=== PATIENT | female | born 1940 | race Caucasian/White ===

== ENCOUNTER 2018-11-28 10:30 | Day surgery (SDC) | payer OTHER ==
[2018-11-28] MEDS ORDERED: NS 0.9% VIAL 10 ML ONE (10:51)
[2018-11-28] MEDS: TETRACAINE HCL 0.5% 2ML OPTH ONE ×2 (11:01→12:30)
[2018-11-28] MEDS: LIDOCAINE 2% MPF 5 ML VIAL ONE ×2 (11:01→12:30)
[2018-11-28] MEDS: BUPIVACAINE 0.25% PF 10 ML VIAL ONE ×2 (11:01→12:30)
[2018-11-28] MEDS ORDERED: NA CHLORIDE 0.9% 500 ML ONE (11:02)
[2018-11-28] MEDS: CYCLOPENTOLATE 1% OPTH 2 ML ONE ×3 (11:16→11:26)
[2018-11-28] MEDS: PHENYLEPHRINE 10% OPTH 5ML ONE ×3 (11:16→11:26)
[2018-11-28 11:22] VITALS: BP 130/55; TEMP 98.5; O2SAT 100
--- OUTSIDE RECORDS SUMMARY | 2018-11-28 11:36 | XMS REPORT | Clinical Summary ---
:1940 Author Organization [facility] Address [address] [place] [address] Care Team Providers Name Role Phone George Mohan MD Primary Care Provider Allergies Active Allergy Reactions Severity Noted Date Comments Abciximab 07/24/2016 Celecoxib 12/03/2015 Heart Condition Metoclopramide 12/03/2015 Unknown reaction Nsaids (Non-Steroidal 07/24/2016 Anti-Inflammatory Drug) Penicillins Anaphylaxis, Rash, High 12/03/2015 Swelling Simvastatin 07/24/2016 Medications Medication Sig Dispensed Refills Start End Status Date Date azelastine 0.15 % USE 2 SQUIRTS 3 Active (205.5 mcg) EACH NOSTRIL 6 spray,non-aerosol PRN COMBIGAN 0.2-0.5 % PUT 1 DROP 1 Active ophthalmic solution INTO BOTH EYES 6 EVERY 12 HOURS ipratropium (ATROVENT) 2 sprays into 0 Active 0.06 % nasal spray each nostril 6 as needed. valACYclovir (VALTREX) Take 500 mg by 0 Active 500 MG tablet mouth daily. 6 MECOBAL/LEVOMEFOLAT Take by mouth 0 Active CA/B6 PHOS (METANX daily. ORAL) aspirin (ECOTRIN) 81 MG Take 81 mg by 0 Active enteric coated tablet mouth daily. MELATONIN ORAL Take 20 mg by 0 Active mouth. ZIOPTAN, PF, 0.0015 % INSTILL 1 DROP 1 Active dropperette IN BOTH EYES 7 AT BEDTIME cycloSPORINE (RESTASIS) Administer 1 0 Active 0.05 % ophthalmic drop to both emulsion eyes 2 (two) times a day. ranitidine (ZANTAC) 150 Take 150 mg by 0 Active MG tablet mouth 2 (two) 7 times a day. Saccharomyces boulardii Take 250 mg by 0 Active (FLORASTOR) 250 mg mouth 2 (two) capsule times a day. biotin 10,000 mcg Take 10,000 0 Active capsule mcg by mouth daily. ZETIA 10 mg Take 1 tablet 90 tablet 3 Active tabletIndications: (10 mg total) 8 Coronary artery disease by mouth once involving [place] heart daily. with angina pectoris, unspecified vessel or lesion type (HCC) EFFIENT 10 mg tablet TAKE 1 TABLET 90 tablet 3 Active BY MOUTH EVERY 8 DAY spironolactone Take 0.5 45 tablet 3 Active (ALDACTONE) 25 MG tablets (12.5 8 tabletIndications: mg total) by Coronary artery disease mouth daily. involving [place] coronary artery of [place] heart without angina pectoris linaclotide (LINZESS) Take 290 mcg 0 Active 290 mcg capsule by mouth. furosemide (LASIX) 20 Take 20 mg by 1 Active mg tablet mouth every 8 morning. pravastatin (PRAVACHOL) Take 1 tablet 90 tablet 2 Active 40 MG tablet (40 mg total) 8 by mouth daily. LINZESS 145 mcg capsule Take 145 mcg 0 Discontinued by mouth daily 6 018 before breakfast. ZETIA 10 mg Take 1 tablet 90 tablet 3 Discontinued tabletIndications: (10 mg total) 7 018 Coronary artery disease by mouth once involving [place] heart daily. with angina pectoris, unspecified vessel or lesion type (HCC) pravastatin (PRAVACHOL) Take 1 tablet 90 tablet 3 Discontinued 40 MG tablet (40 mg total) 7 018 by mouth daily. EFFIENT 10 mg tablet Take 1 tablet 90 tablet 3 Discontinued (10 mg total) 7 018 by mouth once daily. pantoprazole (PROTONIX) Take 40 mg by 0 Discontinued 40 MG EC tablet mouth daily. 018 promethazine-DM 0 Discontinued (PROMETHAZINE-DM) 7 018 6.25-15 mg/5 mL syrup spironolactone Take 25 mg by 0 Discontinued (ALDACTONE) 25 MG mouth daily. 018 tablet Lactobac Take by mouth 0 Discontinued 41-B.bifid,lactis-FOS daily. 018 (ULTIMATE PROBIOTIC-10) 111 mg (25 billion cell) capsule hydroCHLOROthiazide Take 1 capsule 90 capsule 3 Discontinued (MICROZIDE) 12.5 mg (12.5 mg 8 018 capsuleIndications: total) by Hypertension, mouth daily. unspecified type, SOB (shortness of breath) ZETIA 10 mg Take 1 tablet 90 tablet 3 Discontinued tabletIndications: (10 mg total) 8 018 Coronary artery disease by mouth once involving [place] heart daily. with angina pectoris, unspecified vessel or lesion type (HCC) pravastatin (PRAVACHOL) TAKE 1 TABLET 90 tablet 3 Discontinued 40 MG tablet BY MOUTH EVERY 8 018 DAY ferrous sulfate 325 (65 Take 325 mg by 0 Discontinued FE) MG tablet mouth daily 019 with breakfast. 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 Hypertension 04/19/2017 Chest pain 04/19/2017 Stenosis of carotid artery 07/24/2016 Coronary artery disease involving [place] coronary artery of [place] heart 07/24 without angina pectoris Dyslipidemia 07/24/2016 SOB (shortness of breath) 07/24/2016 Gastroesophageal reflux disease 07/24/2016 Presence of stent in coronary artery 07/24/2016 Encounters Date Type Specialty Care Team Description Telephone Gastroenterology Elayne Leon RN Orders Only Cardiology Jessica Donnelly MD Hospital Gastroenterology Keiry Alvarado 9 Encounter MD Robb Telephone Gastroenterology Elayne Webster MA Anesthesia Gastroenterology [facility], 9 Event Nilesh Weems MD Surgery Gastroenterology Keiry Alvarado ESOPHAGOGASTRODUODENOSCOPY Elayne Zamudio MD (EGD) [facility] Gastroenterology Keiry Alvarado 9 Encounter MD Robb Orders Only Gastroenterology Faustina Anand Gastroesophageal reflux 9 DEEPTI Bosch disease, esophagitis presence not specified (Primary Dx) Telephone Gastroenterology Elayne Webster MA Telephone Gastroenterology Elayne Leon RN Orders Only Gastroenterology Kika Faustina 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) (Primary Dx) Telephone Gastroenterology Faustina Anand 8 DEEPTI Bosch Orders Only Gastroenterology Faustina Anand 8 DEEPTI Bosch Telephone Gastroenterology Kika Faustina 8 DEEPTI Bosch Telephone Cardiology Jamel Berkowitz Med Refill 8 DEEPTI Telephone Gastroenterology Benjie Leon RN [facility] Radiology ErgKeiry haji Gastroesophageal reflux 8 Benson Zamudio MD disease without esophagitis Office Visit Gastroenterology Keiry Alvarado Gastroesophageal reflux disease without esophagitis (Primary Dx); Benjie Zamudio MD Dyskinesia of esophagus Orders Only Gastroenterology Asadvinay Faustina Gastroesophageal reflux 8 DEEPTI Bosch disease without esophagitis (Primary Dx) Office Visit Cardiology Jessica Donnelly Coronary artery disease involving [place] coronary artery of [place] heart without angina pectoris ( Primary Dx); Benjie Petty MD SOB (shortness of breath); Weakness Orders Only Cardiology Jessica Donnelly MD Office Visit Cardiology Jessica Donnelly Preop cardiovascular exam ( Primary Dx); Benjie Petty MD Coronary artery disease involving [place] heart with angina pectoris, unspecified vessel or lesion type Refill Cardiology Jessica Donnelly Med Refill Benjie Petty MD Orders Only Cardiology Hamlet Ghosh MA Coronary artery disease 8 involving [place] heart with angina pectoris, unspecified vessel or lesion type Refill Cardiology Jessica Donnelly Med Refill Benjie Petty MD Office Visit Cardiology Jessica Donnelly Coronary artery disease involving [place] coronary artery of [place] heart without angina pectoris ( Primary Dx); Benjie Petty MD Essential hypertension Orders Only Cardiology Hamlet Ghosh MA Coronary artery disease 8 involving [place] heart with angina pectoris, unspecified vessel or lesion type Office Visit Cardiology Jessica Donnelly Hypertension, unspecified type (Primary Dx); Benjie Petty MD SOB (shortness of breath); Presence of stent in coronary artery; Coronary artery disease involving [place] coronary artery of [place] heart without angina pectoris after 11/27/2017 Family History Medical History Relation Name Comments No Known Problems Brother No Known Problems Father Stroke Maternal Grandmother No Known Problems Mother Relation Name Status Comments Brother Alive Father Maternal Grandmother Mother Social History Tobacco Use Types Packs/Day Years Used Date Never Smoker Smokeless Tobacco: Never Used Tobacco Cessation: Counseling Given: Yes Alcohol Use Drinks/Week oz/Week Comments Yes Sex Assigned at Date Recorded Not on file Job Start Date Occupation Industry Not on file Not on file Not on file Travel History Travel Start Travel End No recent travel history available. Last Filed Vital Signs Vital Sign Reading Time Taken Blood Pressure 101/63 11/08/2018 11:13 AM VARIETY SAW OPERATOR Pulse 65 11/08/2018 11:13 AM VARIETY SAW OPERATOR Temperature 36.7 C (98 F) 11/08/2018 11:13 AM VARIETY SAW OPERATOR Respiratory Rate 15 11/08/2018 11:13 AM VARIETY SAW OPERATOR Oxygen Saturation 96% 11/08/2018 11:13 AM VARIETY SAW OPERATOR Inhaled Oxygen Concentration - - Weight 64.7 kg (142 lb 9.6 oz) 09/19/2018 1:14 PM VARIETY SAW OPERATOR Height 167.6 cm (5' 6") 09/19/2018 1:14 PM VARIETY SAW OPERATOR Body Mass Index 23.02 09/19/2018 1:14 PM VARIETY SAW OPERATOR Plan of Treatment Date Type Specialty Care Team Description 12/06/2018 Office Visit Cardiology Jessica Donnelly MD [address] [facility] [address] [place] [address] 12/07/2018 Office Visit Gastroenterology Keiry Alvarado MD [address] [facility] [address] [facility] [address] [place] [address] Health Maintenance Due Date Last Done Comments SHINGLES VACCINES (1 of 2) 01/27/1990 PNEUMOCOCCAL POLYSACCHARIDE VACCINE AGE 65 AND OVER 01/27/2005 PNEUMOCOCCAL-13 01/27/2005 INFLUENZA VACCINE 05/18/2018 Procedures Procedure Name Priority Date/Time Associated Diagnosis Comments GENERAL SURGERY Routine 11/16/2018 ESOPHAGEAL MANOMETRY WITH 11/08/2018 GERD without ESTRADA 10:00 AM VARIETY SAW OPERATOR esophagitis ESOPHAGOGASTRODUODENOSCOPY 11/08/2018 GERD without (EGD) 10:00 AM VARIETY SAW OPERATOR esophagitis CBC HEMOGRAM Routine 10/31/2018 Anemia associated Results for 9:54 AM VARIETY SAW OPERATOR with chronic this lymphocytic leukemia procedure are treated with in the erythropoietin (HCC) results section. [place] ESOPHAGRAM COMPLETE Routine 09/19/2018 Gastroesophageal Results for 4:46 PM VARIETY SAW OPERATOR reflux disease this without esophagitis procedure are in the results section. ECG 12-LEAD Routine 07/12/2018 SOB (shortness of Results for 2:40 PM CDT breath) this Weakness procedure are in the results section. GENERAL SURGERY Routine 06/02/2018 ECG 12-LEAD Routine 05/30/2018 Preop cardiovascular Results for 3:38 PM CDT exam this procedure are in the results section. ECHOCARDIOGRAM 2D COMPLETE W Routine 12/20/2017 Hypertension, Results for MMODE SPECTRAL COLOR DOPPLER 2:46 PM VARIETY SAW OPERATOR unspecified type this (01645) SOB (shortness of procedure are breath) in the results section. after 11/27/2017 Results General surgery (11/16/2018)Only the most recent of2 resultswithin the time period is included. Narrative Performed At CBC hemogram (10/31/2018 9:54 AM VARIETY SAW OPERATOR) WBC 24.6 (H) 3.8 - 10.8 Thousand/uL [facility] RBC 4.19 3.80 - 5.10 Million/uL [facility] HGB 12.9 11.7 - 15.5 g/dL [facility] HCT 39.2 35.0 - 45.0 % [facility] MCV 93.6 80.0 - 100.0 fL [facility] MCH 30.8 27.0 - 33.0 pg [facility] MCHC 32.9 32.0 - 36.0 g/dL [facility] RDW 12.4 11.0 - 15.0 % [facility] Platelet count 166 140 - 400 Thousand/uL [facility] MPV 9.3 7.5 - 12.5 fL [facility] Specimen Blood Narrative Performed At FASTING:YES [facility] FASTING: YES Resulting Agency Comment Performing Organization Information: Site ID: [id number] Name: [facility] Address: [address] [place] [address] Director: María Garcia Performing Organization Address [facility] Phone Number [employer] [address] [phone] [place] Esophagram Complete (09/19/2018 4:46 PM VARIETY SAW OPERATOR) Narrative Performed At EXAMINATION:[place] ESOPHAGRAM COMPLETE [facility] CLINICAL HISTORY:K21.9 Gastro-esophageal reflux disease without esophagitis, acid reflux COMPARISON:Esophagram from September 07, 2014 Fluoroscopy time: 1.3 minutes FINDINGS: The swallowing act is normal. No obstructing or constricting lesions. Esophageal motility within normal limits. The EG junction is patent. Small sliding hiatal hernia is present. No reflux or ulcer identified. IMPRESSION: Small sliding hiatal hernia, unchanged. [facility]-[id number] Procedure Note Hm Interface, Radiology Results Incoming - 09/19/2018 5:44 PM VARIETY SAW OPERATOR EXAMINATION: [place] ESOPHAGRAM COMPLETE CLINICAL HISTORY: K21.9 Gastro-esophageal reflux disease without esophagitis, acid reflux COMPARISON: Esophagram from September 07, 2014 Fluoroscopy time: 1.3 minutes FINDINGS: The swallowing act is normal. No obstructing or constricting lesions. Esophageal motility within normal limits. The EG junction is patent. Small sliding hiatal hernia is present. No reflux or ulcer identified. IMPRESSION: Small sliding hiatal hernia, unchanged. [facility]-[id number] Performing Organization Address [facility] Phone Number [facility] [address] [place] [address] ECG 12 lead (07/12/2018 2:40 PM CDT)Only the most recent of2 resultswithin the time period is included. Ventricular rate 80 [facility] MUSE Atrial rate 80 [facility] MUSE WV interval 152 [facility] M[facility] QRSD interval 76 [facility] QT interval 338 [facility] MUSE QTC interval 389 [facility] P axis 1 72 [facility] MUSE QRS axis 1 21 [facility] MUSE T wave axis 71 [facility] MUSE EKG impression Normal sinus rhythm-Normal ECG-In automated [facility] MUSE comparison with ECG of 30-MAY-2018 15:38,-No significant change was found- Performing Organization Address City/State/Zipcode Phone Number [facility] STACIE [address] [place] [address] Echocardiogram complete w contrast and 3D if needed (12/20/2017 2:46 PM VARIETY SAW OPERATOR) Narrative Performed At [facility] Echocardiography Report Pat.Name:BE FRAZIER.ID:[id number] .Date: 12/20/2017Refer.MD:JESSICA DONNELLY MD Exam Time: 2:17:00 PMStudy Type:Routine Echo Height:66inWeight: 148lb BSA: 1.76 m2 DOBAge:1940,77Y Sex: FEMALEBP:140/62 HR:74 bpm Sonogrphr: OZIEL Allen FASE Pat. Stat.:OutpatientRoom:[place] Study Status:Final Echo Event ID:[id number] Order ID:[id number] Reason for Study:SOB, suspected cardiac etiology Procedures:2D Echo, Colorflow Doppler Race:C SUMMARY: LV EF is normal. LA size is normal. Mild aortic regurgitation. Diastolic dysfunction Grade I (Mild): Impaired relaxation with normal LV filling pressures. FINDINGS: LV: LV size is normal. LV EF is normal. Overall wall motion is normal.Estimated EF is 65-69% RV: RV size is normal. RV systolic function is normal. LA: LA size is normal. RA: RA size is normal. AO: Aortic root diameter is normal. GURWINDER: No pericardial effusion. AV: Focal thickening of AV leaflets. Mild aortic regurgitation. MV: No structural MV abnormalities noted. PV: No structural PV abnormalities noted. TV: No structural TV abnormalities noted. Melara: Diastolic dysfunction Grade I (Mild): Impaired relaxation withnormal LV filling pressures. Other:Insufficient TR jet to estimate PA systolic pressure. MEASUREMENTS: 2D Parasternal Long [place] LVOT 2 cmLA Ds3.6 cm LVIDd4.9 cmIndex2.8 cm/m Ao An2.1 cm LVIDs2.7 cmAo Rtd 3.2 cm Index1.8 cm/m LV%fs 45.3 % LV Skfv420.8 g(87-129) IVSd 0.7 cmLVM Index 78.9 g/m2 LVPWd0.9 cmRWT0.4 LA Sng Plane LA Area 15.5 cm2(8.8-23.4) LA Vol43.6 ml Index24.8 ml/m LA LngAx 4.8 cm Ascending Aorta Asce Dim 3.6 cm Signed 12/21/2017 11:23 AM Harsh Vee M.D. Procedure Note Interface, Radiology Results In - 12/21/2017 11:23 AM VARIETY SAW OPERATOR [facility] Echocardiography Report Pat.Name: BE FRAZIER Pat.ID: [id number] St.Date: 12/20/2017 Refer.MD: JESSICA DONNELLY MD Exam Time: 2:17:00 PM Study Type:Routine Echo Height: 66in Weight: 148lb BSA: 1.76 m2 Age: 4 1940,77Y Sex: FEMALE BP: 140/62 HR: 74 bpm Sonogrphr: OZIEL Allen FASE Pat. Stat.:Outpatient Room: [place] Study Status:Final Echo Event ID:[id number] Order ID: [id number] Reason for Study:SOB, suspected cardiac etiology Procedures:2D Echo, Colorflow Doppler Race: C SUMMARY: LV EF is normal. LA size is normal. Mild aortic regurgitation. Diastolic dysfunction Grade I (Mild): Impaired relaxation with normal LV filling pressures. FINDINGS: LV: LV size is normal. LV EF is normal. Overall wall motion is normal. Estimated EF is 65-69% RV: RV size is normal. RV systolic function is normal. LA: LA size is normal. RA: RA size is normal. AO: Aortic root diameter is normal. GURWINDER: No pericardial effusion. AV: Focal thickening of AV leaflets. Mild aortic regurgitation. MV: No structural MV abnormalities noted. PV: No structural PV abnormalities noted. TV: No structural TV abnormalities noted. Melara: Diastolic dysfunction Grade I (Mild): Impaired relaxation with normal LV filling pressures. Other: Insufficient TR jet to estimate PA systolic pressure. MEASUREMENTS: 2D Parasternal Long [place] LVOT 2 cm LA Ds 3.6 cm LVIDd 4.9 cm Index 2.8 cm/m Ao An 2.1 cm LVIDs 2.7 cm Ao Rtd 3.2 cm Index 1.8 cm/m LV%fs 45.3 % LV Mass 138.8 g (87-129) IVSd 0.7 cm LVM Index 78.9 g/m2 LVPWd 0.9 cm RWT 0.4 LA Sng Plane LA Area 15.5 cm2 (8.8-23.4) LA Vol 43.6 ml Index 24.8 ml/m LA LngAx 4.8 cm Ascending Aorta Asce Dim 3.6 cm Signed 12/21/2017 11:23 AM Harsh Vee M.D. Performing Organization Address City/State/Zipcode Phone Number [facility] [phone] [place] [address] after 11/27/2017 Insurance Payer Benefit Plan / Group Subscriber ID Type Phone Address AETNA MEDICARE AETNA MEDICARE HMO/PPO [facility] xxxxxxxx HMO Advance Directives Patient has advance care planning documents on file. For more information, please contact:Chuy Simmons[address] [place] [address]
[2018-11-28] MEDS ORDERED: PROPOFOL 200 MG/20 ML VIAL IV ONE (12:03)
[2018-11-28] MEDS: BALANCED SALT IRRIG PLAIN 500 ML BTL IRR ONE ×2 (12:33→12:34)
[2018-11-28] MEDS: MOXIFLOXACIN HCL 10 DROPS/ML **OR USE OPTH ONE ×2 (12:33→12:34)
[2018-11-28] MEDS: EPINEPHRINE/PF 1 MG/ML AMP ONE ×2 (12:33→12:34)
[2018-11-28] MEDS: DUOVISC 1 KIT OPTH ONE ×2 (12:33→12:34)
--- NOTE | 2018-11-28 13:14 | P.BOP ---
Preoperative diagnosis: Nuclear sclerotic cataract and regular astigmatism OD Postoperative diagnosis: Same Primary procedure: Phacoemulsification with IOL OD Estimated blood loss: None Anesthesia: Local (Subtenon's infusion with anesthesia for cataract surgery) Complications: None Implants: [id number] +17.0 Transferred to: Other (Day surgery) Condition: Good
--- NOTE | 2018-11-28 23:58 | OP ---
Date of Procedure: 11/28/2018 Surgeon: Shana Martines MD Anesthesiologist: Dai Macias CRNA and Kristofer Grayson MD. Preoperative Diagnoses: Nuclear sclerotic cataract and regular astigmatism, right eye. Operation Performed: Phacoemulsification with intraocular lens implant with limbal relaxing incision , right eye. Anesthesia: Per cataract surgery. Complications: None. Description Of Procedure: In day surgery, the patient was prepped with Betadine and draped. A conju nctival incision was made in the inferior nasal quadrant with Ranjan scissors. A sub-Tenon block c onsisting of a 1:1 mixture of 2% Xylocaine and 0.25% bupivacaine was placed through the conjunctival incision with a blunt cannula. A Honan balloon was placed over the eye and the patient was transferr ed to the operating room. In the operating room the patient was prepped and draped in the usual sterile fashion for ophthalmic surgery. A lid speculum was placed in the right eye. Two paracentesis sites were made superiorly an d inferiorly in the limbal cornea. Viscoat was placed in the anterior chamber and a crescent blade w as used to make a corneal groove and tunnel, and a keratome was used to enter the anterior chamber. Provisc was placed in the anterior chamber and a 360 degree capsulotomy was performed with a cystitom e. The lens was hydrodissected with BSS and rotated freely. The lens was removed with a stop and ch op technique. 8.62 phaco CDE was used to remove the lens. Residual cortex was removed with the irri gation and aspiration. Provisc was placed in the capsular bag. A SN60WF +17.0 lens was placed in th e capsular bag without complications. Irrigation and aspiration were used to remove residual viscoel astic. The paracentesis sites were hydrated with BSS. The wound and paracentesis sites were inspect ed and found to be watertight. Vigamox 0.07 cc was placed intracamerally at the end of the procedure . The eye was irrigated with balanced salt solution. The eye was patched with a soft cotton patch a nd Mullins metal shield. The patient was returned to day surgery in good condition. Comments: A limbal relaxing incision was created at 55 degrees in the superior nasal quadrant. A 30 degree arc was created with a 600 micron blade. Discharge Instructions: Ms. Palmer is discharged to home in good condition. She is to follow up [facility] Dr. Martines at 3:15 today and then in the morning. AB/AGATHA Voice ID: [id number] Report ID: [id number]
== END 2018-11-28 13:42 | disposition home or self-care (01) ==
LOC: OR 10:30
PROVIDERS: ATTEND Ophthalmology Retina Specialist
PROC: 08RJ3JZ Replacement of Right Lens with Synthetic Substitute, Percutaneous Approach (ICD-10-PCS; principal; 2018-11-28 11:00)
DX: H25.11 Age-related nuclear cataract, right eye (principal); H25.011 Cortical age-related cataract, right eye; H52.221 Regular astigmatism, right eye; E78.00 Pure hypercholesterolemia, unspecified; I25.2 Old myocardial infarction; M19.90 Unspecified osteoarthritis, unspecified site; Z79.82 Long term (current) use of aspirin; Z79.02 Long term (current) use of antithrombotics/antiplatelets; Z79.899 Other long term (current) drug therapy; Z95.5 Presence of coronary angioplasty implant and graft; Z85.6 Personal history of leukemia
CPT/HCPCS: 66984; J0171; J2704; V2630

== ENCOUNTER 2019-11-12 12:38 | Emergency (ER) | payer OTHER ==
[2019-11-12 13:19] LABS: Absolute Lymphocytes (CBC) 17.4 K/uL (0.7-4.9); Basophils % 0.1 % (0-1.3); Hematocrit 37.6 % (36.0-45.0); MPV 7.3 fL (7.6-11.3); RBC Red Blood Cell Count 3.92 M/uL (3.86-4.86)
[2019-11-12 13:30] LABS: Protime INR 1.04
[2019-11-12 13:40] LABS: ALT/SGPT 23 U/L (12-78); AST/SGOT 17 U/L (15-37); Albumin 3.4 g/dL (3.4-5.0); Alkaline Phosphatase 70 U/L (45-117); BUN Blood Urea Nitrogen 17 mg/dL (7-18); Bicarbonate 29 mmol/L (21-32); Bilirubin Direct 0.2 mg/dL (0-0.2); Bilirubin Total 0.6 mg/dL (0.2-1.0); Glucose Level 91 mg/dL (74-106); Magnesium 2.2 mg/dL (1.8-2.4); NT PRO-BNP 121 pg/mL (<450); Protein, Total 6.6 g/dL (6.4-8.2); Sodium Level 138 mmol/L (136-145); Troponin (Emerg Dept Use Only) < 0.02 ng/mL (0.0-0.045)
--- NOTE | 2019-11-12 13:52 | RAD REPORT ---
EXAM DESCRIPTION: Maren Single View11/12/2019 1:29 pm CLINICAL HISTORY: Hypertension/syncope COMPARISON: none FINDINGS: Nodular opacity overlies the right lung base. Lungs are hyperaerated Left lung appears clear. The heart is normal size IMPRESSION: Nodular opacity which overlies the right lung base probably a nipple shadow rather than a pulmonary nodule. This should be confirmed with right nipple marker and oblique views of the chest
[2019-11-12 15:30] LABS: Blood Morphology Comment NOTED (NOT SEEN); Platelet Estimate ADEQ; Poikilocytosis 1+
--- NOTE | 2019-11-12 17:38 | ER ---
Nurse's Notes [facility] Name: eB Palmer Age: 79 yrs Sex: Female : 1940 Arrival Date: 11/12/2019 Time: 12:51 Bed 24 Private MD: Diagnosis: Orthostatic hypotension;Near syncope Presentation: 11/12 12:52 Presenting complaint: Patient states: She was sitting at [employer] and suddenly her vision aj1 started to go black around the edges and she passed out. Patient denies any pain, SOB, or nausea before or after the episode. Denies pain. States that she just doesn't feel very good. Transition of care: patient was not received from another setting of care. Onset of symptoms was November 12, 2019. Risk Assessment: Do you want to hurt yourself or someone else? Patient reports no desire to harm self or others. Initial Sepsis Screen: Does the patient meet any 2 criteria? No. Patient's initial sepsis screen is negative. Does the patient have a suspected source of infection? No. Patient's initial sepsis screen is negative. Care prior to arrival: None. 12:52 Method Of Arrival: EMS: [facility] aj1 12:52 Acuity: PEDRO 2 aj1 Triage Assessment: 13:00 General: Appears in no apparent distress. comfortable, Behavior is calm, cooperative, aj1 appropriate for age. Pain: Denies pain. Neuro: Level of Consciousness is awake, alert, obeys commands, Reports a syncopal episode. Historical: - Allergies: 12:59 PENICILLINS; aj1 12:59 Zocor; aj1 12:59 NSAIDS; aj1 - Home Meds: 12:59 pravastatin 10 mg oral tab 1 tab once daily [Active]; Zetia 10 mg Oral tab 1 tab once aj1 daily [Active]; biotin 10,000 mcg oral cap daily [Active]; Metanx (algal oil) 3 mg-35 mg-2 mg -90.314 mg oral cap daily [Active]; Lasix 20 mg Oral tab 1 tab once daily [Active]; aspirin 81 mg Oral chew 1 tab once daily [Active]; Effient 10 mg oral tab 1 tab once daily [Active]; valacyclovir 500 mg Oral tab 1 tab once daily [Active]; Melatonin Oral as needed [Active]; ipratropium bromide nasal nasal as needed [Active]; azelastine nasal nasal as needed [Active]; Spironolactone 12.5 mg Oral once daily [Active]; Combigan 0.2-0.5 % ophthalmic drop 1 drop every 12 hours [Active]; Zioptan (PF) 0.0015 % ophthalmic dpet 1 drop once daily [Active]; Restasis 0.05 % ophthalmic dpet 1 drop 2 times per day [Active]; - PMHx: 12:59 CAD; cardiac stent x4; Myocardial infarction; CLL; Hypertension; Hyperlipidemia; aj1 - Immunization history:: Flu vaccine is up to date. - Coronavirus screen:: The patient has NOT traveled to [place], [place], or [place] in the past 14 days. - Social history:: Smoking status: Patient denies any tobacco usage or history of. - Ebola Screening: : Patient denies travel to an Ebola-affected area in the 21 days before illness onset. Screenin:02 Abuse screen: Denies threats or abuse. Denies injuries from another. Nutritional aj1 screening: No deficits noted. Tuberculosis screening: No symptoms or risk factors identified. 18:04 Fall Risk None identified. aj1 Assessment: 13:02 General: Appears in no apparent distress. comfortable, Behavior is calm, cooperative, aj1 appropriate for age. Pain: Denies pain. Neuro: Level of Consciousness is awake, alert, obeys commands, Oriented to person, place, time, situation, Moves all extremities. Full function Speech is normal, Facial symmetry appears normal, Reports a syncopal episode. Cardiovascular: Denies chest pain, nausea, palpitations, shortness of breath, Heart tones S1 S2 present Patient's skin is warm and dry. Rhythm is sinus rhythm. Respiratory: Airway is patent Respiratory effort is even, unlabored, Respiratory pattern is regular, symmetrical. GI: No signs and/or symptoms were reported involving the gastrointestinal system. : No signs and/or symptoms were reported regarding the genitourinary system. EENT: No signs and/or symptoms were reported regarding the EENT system. Derm: No signs and/or symptoms reported regarding the dermatologic system. Skin is pink, warm \T\ dry. normal. Musculoskeletal: No signs and/or symptoms reported regarding the musculoskeletal system. Circulation, motion, and sensation intact. 14:18 Reassessment: Patient appears in no apparent distress at this time. No changes from aj1 previously documented assessment. Patient and/or family updated on plan of care and expected duration. Pain level reassessed. Patient is alert, oriented x 3, equal unlabored respirations, skin warm/dry/pink. 15:15 Reassessment: Patient appears in no apparent distress at this time. No changes from aj1 previously documented assessment. Patient and/or family updated on plan of care and expected duration. Pain level reassessed. Patient is alert, oriented x 3, equal unlabored respirations, skin warm/dry/pink. 16:15 Reassessment: Patient and/or family updated on plan of care and expected duration. Pain aj1 level reassessed. General: Appears in no apparent distress. comfortable, Behavior is calm, cooperative, appropriate for age. Pain: Denies pain. Neuro: Level of Consciousness is awake, alert, obeys commands, Oriented to person, place, time, situation, Moves all extremities. Full function Speech is normal, Facial symmetry appears normal. Cardiovascular: Patient's skin is warm and dry. Rhythm is sinus rhythm. Respiratory: Airway is patent Respiratory effort is even, unlabored, Respiratory pattern is regular, symmetrical. GI: No signs and/or symptoms were reported involving the gastrointestinal system. Derm: No signs and/or symptoms reported regarding the dermatologic system. Skin is pink, warm \T\ dry. normal. Musculoskeletal: No signs and/or symptoms reported regarding the musculoskeletal system. Circulation, motion, and sensation intact. 17:15 Reassessment: Patient appears in no apparent distress at this time. No changes from aj1 previously documented assessment. Patient and/or family updated on plan of care and expected duration. Pain level reassessed. Patient is alert, oriented x 3, equal unlabored respirations, skin warm/dry/pink. 18:02 Reassessment: Patient appears in no apparent distress at this time. No changes from aj1 previously documented assessment. Patient and/or family updated on plan of care and expected duration. Pain level reassessed. Patient is alert, oriented x 3, equal unlabored respirations, skin warm/dry/pink. Vital Signs: 13:00 BP 121 / 52; Pulse 66; Resp 15; Temp 97.7; Pulse Ox 100% on R/A; Weight 62.6 kg (R); aj1 Height 5 ft. 5 in. (165.10 cm) (R); Pain 0/10; 14:18 BP 106 / 72; Pulse 69; Resp 18; Pulse Ox 100% on R/A; aj1 15:15 BP 110 / 67; Pulse 69; Resp 18; Pulse Ox 97% ; aj1 16:15 BP 105 / 81; Pulse 69; Resp 18; Pulse Ox 100% ; aj1 17:15 BP 107 / 67; Pulse 72; Resp 18; Pulse Ox 99% on R/A; aj1 18:04 BP 110 / 65; Pulse 75; Resp 18; Pulse Ox 99% on R/A; aj1 13:00 Body Mass Index 22.96 (62.60 kg, 165.10 cm) aj1 ED Course: 12:51 Patient arrived in ED. aj1 12:53 Triage completed. aj1 12:59 Jennifer Fernandez RN is Primary Nurse. aj1 13:00 Arm band placed on. aj1 13:02 Patient has correct armband on for positive identification. video rental clerk on. Pulse aj1 ox on. NIBP on. 13:02 No provider procedures requiring assistance completed. Maintain EMS IV. Dressing aj1 intact. Good blood return noted. Site clean \T\ dry. Gauge \T\ site: 18g right AC. 13:09 Bernard Amin NP is PHCP. pm1 13:09 Biju Yeboah MD is Attending Physician. pm1 13:29 XRAY Chest (1 view) In Process Unspecified. EDMS 15:00 Warm blanket given. Pillow given. Verbal reassurance given. jp3 17:09 Repeat lab(s) drawn. by ri, sent to lab. jp3 18:04 IV discontinued, intact, bleeding controlled, No redness/swelling at site. Pressure aj1 dressing applied. Administered Medications: No medications were administered Outcome: 17:37 Discharge ordered by . pm1 18:05 Discharged to home ambulatory. aj1 18:05 Condition: good 18:05 Discharge instructions given to patient, Instructed on discharge instructions, follow up and referral plans. Demonstrated understanding of instructions, follow-up care. 18:06 Patient left the ED. aj1 Signatures: Dispatcher [employer] EDUT Jennifer Fernandez RN RN aj1 Bernard Amin NP [employer]AR THERMAL INSTALLER pm1 Juan J Stearns jp3
--- NOTE | 2019-11-12 17:38 | EDPHYS ---
Physician Documentation [facility] Name: Be Palmer Age: 79 yrs Sex: Female : 1940 Arrival Date: 11/12/2019 Time: 12:51 Bed 24 Private MD: ED Physician Biju Yeboah HPI: 11/12 13:00 This 79 yrs old Female presents to ER via EMS with complaints of Near syncope.pm1 13:00 The patient has experienced near-syncope. Onset: The symptoms/episode began/occurred pm1 just prior to arrival. Duration: This was a single episode. Context: the episode(s) was witnessed, friends at [employer], occurred while the patient was sitting, Just prior to the episode the patient experienced no apparent symptoms. Associated injury: The patient did not suffer any apparent associated injury. Associated signs and symptoms: Pertinent negatives: abdominal pain, chest pain, diarrhea, headache, nausea, vomiting. Current symptoms: Currently, the patient is not experiencing any symptoms. Patient was sitting at [employer] and started to feel faint. She described that her vision started darkening on both eyes. Has fainted once as a teenager and recalled how it felt. She did not pass out or injured herself. She informed her friend sitting next to her how she felt and the EMS was contacted. EMS reports that she was orthostatic and gave her some IV fluids. She reports improvement and resolution of symptoms after getting some fluids. She did not have any symptoms of dizziness, headache, chest pain, or shortness of breath prior to feeling faint. Historical: - Allergies: 12:59 PENICILLINS; aj1 12:59 Zocor; aj1 12:59 NSAIDS; aj1 - Home Meds: 12:59 pravastatin 10 mg oral tab 1 tab once daily [Active]; Zetia 10 mg Oral tab 1 tab once aj1 daily [Active]; biotin 10,000 mcg oral cap daily [Active]; Metanx (algal oil) 3 mg-35 mg-2 mg -90.314 mg oral cap daily [Active]; Lasix 20 mg Oral tab 1 tab once daily [Active]; aspirin 81 mg Oral chew 1 tab once daily [Active]; Effient 10 mg oral tab 1 tab once daily [Active]; valacyclovir 500 mg Oral tab 1 tab once daily [Active]; Melatonin Oral as needed [Active]; ipratropium bromide nasal nasal as needed [Active]; azelastine nasal nasal as needed [Active]; Spironolactone 12.5 mg Oral once daily [Active]; Combigan 0.2-0.5 % ophthalmic drop 1 drop every 12 hours [Active]; Zioptan (PF) 0.0015 % ophthalmic dpet 1 drop once daily [Active]; Restasis 0.05 % ophthalmic dpet 1 drop 2 times per day [Active]; - PMHx: 12:59 CAD; cardiac stent x4; Myocardial infarction; CLL; Hypertension; Hyperlipidemia; aj1 - Immunization history:: Flu vaccine is up to date. - Coronavirus screen:: The patient has NOT traveled to [place], [place], or [place] in the past 14 days. - Social history:: Smoking status: Patient denies any tobacco usage or history of. - Ebola Screening: : Patient denies travel to an Ebola-affected area in the 21 days before illness onset. ROS: 13:00 Constitutional: Negative for fever, chills, and weight loss, Eyes: Negative for injury, pm1 pain, redness, and discharge, ENT: Negative for injury, pain, and discharge, Neck: Negative for injury, pain, and swelling, Cardiovascular: Negative for chest pain, palpitations, and edema, Respiratory: Negative for shortness of breath, cough, wheezing, and pleuritic chest pain, Abdomen/GI: Negative for abdominal pain, nausea, vomiting, diarrhea, and constipation, Back: Negative for injury and pain, : Negative for injury, bleeding, discharge, and swelling, MS/Extremity: Negative for injury and deformity, Skin: Negative for injury, rash, and discoloration. 13:00 Neuro: Positive for near syncope, Negative for altered mental status, dizziness, headache, loss of consciousness, numbness, speech changes, syncope, tingling, visual changes, weakness. Exam: 13:00 Abdomen/GI: Inspection: abdomen appears normal, Bowel sounds: normal, Palpation: pm1 abdomen is soft and non-tender, in all quadrants, mass, is not appreciated, rebound tenderness, is not appreciated. 13:00 Constitutional: This is a well developed, well nourished patient who is awake, alert, and in no acute distress. Head/Face: Normocephalic, atraumatic. Neck: Trachea midline, no thyromegaly or masses palpated, and no cervical lymphadenopathy. Supple, full range of motion without nuchal rigidity, or vertebral point tenderness. No Meningismus. Chest/axilla: Normal chest wall appearance and motion. Nontender with no deformity. No lesions are appreciated. Cardiovascular: Regular rate and rhythm with a normal S1 and S2. No gallops, murmurs, or rubs. Normal PMI, no JVD. No pulse deficits. Respiratory: Lungs have equal breath sounds bilaterally, clear to auscultation and percussion. No rales, rhonchi or wheezes noted. No increased work of breathing, no retractions or nasal flaring. Back: No spinal tenderness. No costovertebral tenderness. Full range of motion. Skin: Warm, dry with normal turgor. Normal color with no rashes, no lesions, and no evidence of cellulitis. MS/ Extremity: Pulses equal, no cyanosis. Neurovascular intact. Full, normal range of motion. 13:00 Neuro: Orientation: is normal, Mentation: is normal, Cranial nerves: CN II- XII are normal as tested, Motor: moves all fours, Sensation: is normal, no obvious gross deficits. Vital Signs: 13:00 BP 121 / 52; Pulse 66; Resp 15; Temp 97.7; Pulse Ox 100% on R/A; Weight 62.6 kg (R); aj1 Height 5 ft. 5 in. (165.10 cm) (R); Pain 0/10; 14:18 BP 106 / 72; Pulse 69; Resp 18; Pulse Ox 100% on R/A; aj1 15:15 BP 110 / 67; Pulse 69; Resp 18; Pulse Ox 97% ; aj1 16:15 BP 105 / 81; Pulse 69; Resp 18; Pulse Ox 100% ; aj1 17:15 BP 107 / 67; Pulse 72; Resp 18; Pulse Ox 99% on R/A; aj1 18:04 BP 110 / 65; Pulse 75; Resp 18; Pulse Ox 99% on R/A; aj1 13:00 Body Mass Index 22.96 (62.60 kg, 165.10 cm) [facility] MDM: 13:09 Patient medically screened. pm1 17:17 Data reviewed: vital signs. Data interpreted: Pulse oximetry: on room air is 100 %. pm1 Interpretation: normal. 17:37 Counseling: I had a detailed discussion with the patient and/or guardian regarding: the pm1 historical points, exam findings, and any diagnostic results supporting the discharge/admit diagnosis, lab results, radiology results, the need for outpatient follow up, to return to the emergency department if symptoms worsen or persist or if there are any questions or concerns that arise at home. 11/12 13:00 Order name: Basic Metabolic Panel; Complete Time: 14:22 11/12 13:00 Order name: CBC with Diff; Complete Time: 15:38 11/12 13:00 Order name: LFT's; Complete Time: 14:22 11/12 13:00 Order name: Magnesium; Complete Time: 14:11/12 13:00 Order name: NT PRO-BNP; Complete Time: 14:11/12 13:00 Order name: PT-INR; Complete Time: 14:11/12 13:00 Order name: Troponin (emerg Dept Use Only); Complete Time: 14:11/12 13:00 Order name: XRAY Chest (1 view); Complete Time: 14:11/12 13:00 Order name: EKG; Complete Time: 13:11/12 13:00 Order name: Cardiac monitoring; Complete Time: 13:11/12 13:00 Order name: EKG - Nurse/Tech; Complete Time: 13:11/12 13:00 Order name: IV Saline Lock; Complete Time: 13:14 11/12 13:30 Order name: Manual Differential; Complete Time: 15:38 EDMS 11/12 17:03 Order name: Troponin (emerg Dept Use Only); Complete Time: 17:37 pm1 11/12 13:00 Order name: Labs collected and sent; Complete Time: 13:14 11/12 13:00 Order name: O2 Per Protocol; Complete Time: 13:11/12 13:00 Order name: O2 Sat Monitoring; Complete Time: 13: EC: Rate is 67 beats/min. Rhythm is regular, Sinus Rhythm with No ectopy. QRS [place] is kdr Normal. IA interval is normal. Clinical impression: NSR w/ Non-specific ST/T Changes. Administered Medications: No medications were administered Disposition: :14 Co-signature as Attending Physician, Biju Yeboah MD I agree with the assessment and kdr plan of care. Disposition: 11/12/19 17:37 Discharged to Home. Impression: Near syncope, Orthostatic hypotension. - Condition is Stable. - Discharge Instructions: Dehydration, Elderly, Near-Syncope, Orthostatic Hypotension, Rehydration, Elderly. - Medication Reconciliation Form, Thank You Letter, Antibiotic Education, Prescription Opioid Use form. - Follow up: Emergency Department; When: As needed; Reason: Worsening of condition. Follow up: Private Physician; When: 2 - 3 days; Reason: Recheck today's complaints, Continuance of care, Re-evaluation by your physician. - Problem is new. - Symptoms have improved. Signatures: Dispatcher [employer] EDMS Jennifer Fernandez RN RN aj1 Biju Yeboah MD MD kdr Bernard Amin, RN BUILDING RN BUILDING pm1 Corrections: (The following items were deleted from the chart) 18:06 17:37 11/12/2019 17:37 Discharged to Home. Impression: Near syncopeOrthostatic aj1 hypotension. Condition is Stable. Discharge Instructions: Near-Syncope, Orthostatic Hypotension. Forms are Medication Reconciliation Form, Thank You Letter, Antibiotic Education, Prescription Opioid Use. Follow up: Emergency Department; When: As needed; Reason: Worsening of condition. Follow up: Private Physician; When: 2 - 3 days; Reason: Recheck today's complaints, Continuance of care, Re-evaluation by your physician. Problem is new. Symptoms have improved. pm1
[2019-11-12 18:11] VITALS: TEMP 97.7
[2019-11-12 18:18] VITALS: O2SAT 99
[2019-11-12 18:20] VITALS: BP 110/65
--- NOTE | 2019-11-13 06:58 | EKG ---
Test Date: 2019-11-12 Test Time: 13:01:50 Rapid Outsole Stitcher: MO MEASUREMENT RESULTS: Intervals: Rate: 67 GA: 150 QRSD: 86 QT: 404 QTc: 426 [place]: P: 74 GA: 150 QRS: 50 T: 82 INTERPRETIVE STATEMENTS: Normal sinus rhythm Cannot rule out Septal infarct, age undetermined Abnormal ECG Compared to ECG 11/19/2012 02:15:53 Possible Myocardial infarct finding now present Sinus bradycardia no longer present Electronically Signed On 11-13-19 06:57:37 OPERATIONS PLANNER by Francesco Prater
== END 2019-11-12 18:06 | disposition home or self-care (01) ==
LOC: ER 12:38
DX: R55 Syncope and collapse (principal); I95.1 Orthostatic hypotension; Z88.0 Allergy status to penicillin
CPT/HCPCS: 36415; 71045; 80048; 80076; 83735; 83880; 84484; 85025; 85610; 93005; 99284

== ENCOUNTER 2024-09-17 10:53 | Emergency (ER) | payer OTHER ==
--- NOTE | 2024-09-17 11:38 | RAD REPORT ---
EXAMINATION: XR RIGHT FOREARM CLINICAL INDICATION: . PAIN TECHNIQUE:Two view radiograph of the right forearm were obtained. COMPARISON: No prior exam. FINDINGS: Diffuse osteopenia is seen. Mild radiocarpal arthritic changes are present. TFCC chondroca lcinosis. No acute fracture.
--- NOTE | 2024-09-17 11:41 | RAD REPORT ---
EXAM: XR RIGHT HAND HISTORY: Pain. PAIN COMPARISON: None TECHNIQUE: Multiple projections of the right hand submitted. FINDINGS: Diffuse osteopenia is seen.. Radiocarpal joint arthritic changes and first carpometacarpal degenerative changes. Chondrocalcinosis of the TFCC noted. No acute fracture or dislocation.
--- NOTE | 2024-09-17 11:57 | EDPHYS ---
Physician Documentation [facility] Name: Be Palmer Age: 84 yrs Sex: Female : 1940 Arrival Date: 09/17/2024 Time: 10:53 Bed 19 Private MD: ED Physician Trevon Murphy HPI: 09/17 11:02 This 84 yrs old Female presents to ER via Unassigned with complaints of Hand Injury. kb 11:02 Pt is an 84 year old female who presents for right hand and forearm pain that started kb after being pushed over by a dog and falling to the ground 5 days ago. States it hasn't gotten better so she decided to come get it checked out. . Historical: - Allergies: 11:09 NSAIDS; ss 11:09 PENICILLINS; ss 11:09 Zocor; ss - PMHx: 11:09 CAD; cardiac stent x4; CLL; Hyperlipidemia; Hypertension; Myocardial infarction; ss - Immunization history:: Adult Immunizations unknown. - Infectious Disease History:: Denies. - Social history:: Smoking status: Patient denies any tobacco usage or history of. ROS: 11:02 Constitutional: As per HPI kb Exam: 11:02 Constitutional: This is a well developed, well nourished patient who is awake, alert, kb and in no acute distress. Head/Face: Normocephalic, atraumatic. ENT: Moist Mucous membranes Cardiovascular: Regular rate Respiratory: Respirations even and unlabored. No increased work of breathing. Talking in full sentences Skin: Warm, dry with normal turgor. Normal color. Neuro: Awake and alert, GCS 15, oriented to person, place, time, and situation. 11:02 Musculoskeletal/extremity: Extremities: grossly normal except: noted in the right hand: ecchymosis, pain, swelling, ROM: intact in all extremities, Circulation is intact in all extremities. Sensation intact. Vital Signs: 11:06 BP 150 / 59; Pulse 85; Resp 16; Temp 98.3(TE); Pulse Ox 98% on R/A; Weight 51.26 kg; ss Height 5 ft. 5 in. ; Pain 8/10; 12:32 BP 150 / 58; Pulse 82; Resp 16; Pulse Ox 98% ; db 11:06 Body Mass Index 18.80 (51.26 kg, 165.1 cm) ss 11:06 Pain Scale: Adult ss MDM: 10:58 Medical Screening Exam initiated kb 11:56 Data reviewed: vital signs, nurses notes. kb 11:56 Differential diagnosis: dislocation, closed fracture, contusion. Counseling: I had a kb detailed discussion with the patient and/or guardian regarding the historical points, exam findings, and any diagnostic results supporting the discharge/admit diagnosis, radiology results, the need for outpatient follow up, a orthopedic surgeon, to return to the emergency department if symptoms worsen or persist or if there are any questions or concerns that arise at home. 09/17 11:02 Order name: Hand Right 3 View XRAY; Complete Time: 11:48 kb 09/17 11:02 Order name: Forearm Right XRAY; Complete Time: 11:41 kb 09/17 11:56 Order name: Sling; Complete Time: 12:22 kb Administered Medications: No medications were administered Disposition Summary: 09/17/24 11:57 Discharge Ordered Notes: Location: Home kb Condition: Stable kb Diagnosis - Contusion of right hand kb Followup: kb - With: Emergency Department - When: As needed - Reason: Worsening of condition Followup: kb - With: Private Physician - When: 2 - 3 days - Reason: Recheck today's complaints, Continuance of care, Re-evaluation by your physician Discharge Instructions: - Discharge Summary Sheet kb - Hand Contusion, [id number] kb Forms: - Medication Reconciliation Form kb - Antibiotic Education kb - Prescription Opioid Use kb - Patient Portal Instructions kb - Leadership Thank You Letter kb Signatures: Dispatcher [employer] EDIvette Ngo, DANIA-C DANIA-Rachel Velasquez, LAINEY RN ss Katherin Bradley, LAINEY RN db Corrections: (The following items were deleted from the chart) : 11:02 Forearm Right+[id number] ordered. EDCT EDMS
--- NOTE | 2024-09-17 11:57 | ER ---
Nurse's Notes [facility] Name: Be Palmer Age: 84 yrs Sex: Female : 1940 Arrival Date: 09/17/2024 Time: 10:53 Bed 19 Private MD: Diagnosis: Contusion of right hand Presentation: 09/17 11:06 Chief complaint: Patient states: R hand and wrist pain that began Thanksgiving wilmer ss after tripping over a dog. Coronavirus screen: Client denies travel out of the [place] in the last 14 days. Ebola Screen: Patient denies exposure to infectious person. Patient denies travel to an Ebola-affected area in the 21 days before illness onset. Initial Sepsis Screen: Does the patient meet any 2 criteria? No. Patient's initial sepsis screen is negative. Does the patient have a suspected source of infection? No. Patient's initial sepsis screen is negative. Risk Assessment: Do you want to hurt yourself or someone else? Patient reports no desire to harm self or others. Onset of symptoms was September 13, 2024. 11:06 Method Of Arrival: Ambulatory 11:06 Acuity: PEDRO 4 ss Historical: - Allergies: 11:09 NSAIDS; ss 11:09 PENICILLINS; ss 11:09 Zocor; ss - PMHx: 11:09 CAD; cardiac stent x4; CLL; Hyperlipidemia; Hypertension; Myocardial infarction; ss - Immunization history:: Adult Immunizations unknown. - Infectious Disease History:: Denies. - Social history:: Smoking status: Patient denies any tobacco usage or history of. Screenin:19 [facility] ED Fall Risk Assessment (Adult) History of falling in the last 3 months, db including since admission Yes- single mechanical fall (1 pt) Confusion or Disorientation No (0 pts) Intoxicated or Sedated No (0 pts) Impaired Gait No (0 pts) Mobility Assist Device Used No (0 pt) Altered Elimination No (0 pt) Score/Fall Risk Level 0 - 2 = Low Risk Oriented to surroundings, Maintained a safe environment. Abuse screen: Denies threats or abuse. Denies injuries from another. Nutritional screening: No deficits noted. Tuberculosis screening: No symptoms or risk factors identified. Assessment: 11:18 Reassessment: Patient appears in no apparent distress at this time. Patient and/or db family updated on plan of care and expected duration. Pain level reassessed. Patient is alert, oriented x 3, equal unlabored respirations, skin warm/dry/pink. General: Appears in no apparent distress. comfortable, Behavior is calm, cooperative. Pain: Complains of pain in medial aspect of right wrist. Neuro: Level of Consciousness is awake, alert, obeys commands, Oriented to person, place, time, situation. Respiratory: Airway is patent Respiratory effort is even, unlabored, Respiratory pattern is regular, symmetrical. Musculoskeletal: Circulation, motion, and sensation intact. Capillary refill < 3 seconds, Range of motion: limited in right wrist Reports pain in right hand. 11:18 Derm: Bruising that is dark purple. db 12:32 Reassessment: Patient appears in no apparent distress at this time. Patient and/or db family updated on plan of care and expected duration. Pain level reassessed. Patient is alert, oriented x 3, equal unlabored respirations, skin warm/dry/pink. Vital Signs: 11:06 BP 150 / 59; Pulse 85; Resp 16; Temp 98.3(TE); Pulse Ox 98% on R/A; Weight 51.26 kg; ss Height 5 ft. 5 in. ; Pain 8/10; 12:32 BP 150 / 58; Pulse 82; Resp 16; Pulse Ox 98% ; db 11:06 Body Mass Index 18.80 (51.26 kg, 165.1 cm) ss 11:06 Pain Scale: Adult ss ED Course: 10:58 Patient arrived in ED. al6 10:58 [facility] kb 10:58 Trevon Murphy MD is Attending Physician. kb 11:08 Triage completed. ss 11:09 Arm band placed on right wrist. ss 11:17 Katherin Bradley, RN is Primary Nurse. db 11:22 Hand Right 3 View XRAY In Process Unspecified. EDMS 11:22 Forearm Right XRAY In Process Unspecified. EDMS 11:36 Pulse ox on. NIBP on. Ice pack to injury. db 12:22 Sling applied to right arm. db 12:32 Patient has correct armband on for positive identification. Bed in low position. Call db light in reach. Side rails up X 1. Provided Education on: DISCHARGE AND FOLLOWUP. 12:32 No provider procedures requiring assistance completed. Patient did not have IV access db during this emergency room visit. Administered Medications: No medications were administered Medication: 11:38 VIS not applicable for this client. db Outcome: 11:57 Discharge ordered by . joshua 12:32 Discharged to home ambulatory, with friend, db 12:32 Condition: stable 12:32 Discharge instructions given to patient, friend, Instructed on discharge instructions, follow up and referral plans. 12:36 Patient left the ED. db Signatures: Dispatcher [employer] EDWA Ivette Farah, MIRIAM NAJERA-Rachel Velasquez, RN RN ss Katherin Bradley RN RN db Lynda Barahona Corrections: (The following items were deleted from the chart) 11:38 11:18 Reassessment: Patient appears in no apparent distress at this time. Patient db and/or family updated on plan of care and expected duration. Pain level reassessed. Patient is alert, oriented x 3, equal unlabored respirations, skin warm/dry/pink. db
[2024-09-17 15:40] VITALS: TEMP 98.3; O2SAT 98
[2024-09-17 15:41] VITALS: BP 150/58
== END 2024-09-17 12:36 | disposition home or self-care (01) ==
LOC: ER 10:53
DX: S60.221A Contusion of right hand, initial encounter (principal); W18.30XA Fall on same level, unspecified, initial encounter
CPT/HCPCS: 99283